=== PATIENT | female | born 1990 | race Caucasian/White ===

== ENCOUNTER → 2019-01-08 | Outpatient (CLI) | payer BC ==
--- NOTE | 2019-01-09 07:17 | REP ---
Clinical: Pain. Technique: AP and lateral views of the cervical spine. Findings: No acute fracture / compression injury or subluxation. Straightening of normal lordosis may be secondary to positioning versus pain/spasm. Mild endplate sclerosis and minimal disc space narrowing suggested at C3-4 and C4-5. Impression: Very minimal degenerative changes at C3-4 and C4-5. Electronically Signed by Clemente Hood MD 01/09/2019 07:07 A
--- NOTE | 2019-01-09 07:17 | REP ---
Clinical: Left shoulder pain . Technique: Internal rotation, external rotation, and Y view. Findings: No acute fracture or dislocation. The acromioclavicular and glenohumeral joints are intact. No periarticular calcifications or degenerative changes are appreciated. Sub acromial space is normal. Surrounding soft tissues are unremarkable. Impression: Normal left shoulder radiographs. Electronically Signed by Clemente Hood MD 01/09/2019 07:08 A
== END ==
LOC: M WUC 16:04
PROVIDERS: ATTEND Physician Assistant
DX: M25.512 Pain in left shoulder (principal)